=== PATIENT | female | born 1940 | race Caucasian/White ===

== ENCOUNTER 2016-08-18 16:21 | Inpatient (IN) ==
[2016-08-18] MEDS ORDERED: NS 500 ML IV ONE (16:41)
[2016-08-18] MEDS ORDERED: NS 1,000 ML IV ONE (16:41)
[2016-08-18 17:20] LABS: MANUAL DIFF NEEDED? NO
[2016-08-18 17:24] LABS: BASO% 0.1 % (0.0-0.8); EOS# 0.07 X1000 (0.0-0.7); HEMOGLOBIN 9.2 g/dL (12.0-16.0); IMM GRAN# 0.04 X1000 (0.0-0.04); IMM GRAN% 0.6 % (0.0-0.5); LYMPH# 1.36 X1000 (1.2-3.4); LYMPH% 19.4 % (20.5-51.1); MCHC 32.9 g/dL (33-37); MCV 91.2 FL (81-99); MONO# 0.59 X1000 (0.11-0.59); MONO% 8.4 % (1.7-9.3); MPV 12.1 FL (7.4-10.4); NEUT% 70.5 % (42.2-75.2); PLT 133 X1000 (130-400); RBC 3.07 XMIL (4.2-5.4)
[2016-08-18 17:46] LABS: ALBUMIN 2.9 g/dL (3.5-5.0); CALCIUM 8.4 mg/dL (8.8-10.2); MAGNESIUM 2.3 mg/dL (1.5-2.7); POTASSIUM 4.5 mmol/L (3.5-5.1); TOTAL BILIRUBIN 0.52 mg/dL (0.20-1.00); TOTAL PROTEIN 5.6 g/dL (6.3-8.3)
[2016-08-18 18:04] LABS: FREE T4 1.22 ng/dL (0.93-1.70)
--- NOTE | 2016-08-18 18:04 | PROVIDER DOCUMENTATION ---
This chart was entered by Mesha Sosa Scribe, acting as scribe for Wyatt Sherman MD. HPI-General Adult <Mena Gaytan - Last Filed: 08/19/16 18:38> - General Source: patient - History of Present Illness -Gen Adult Nature of Presenting Problems: 76 yo F presents to the ER with complaint of hematuria, "white mucous" in urine , and increased confusion. Pt left rehab yesterday, family member reports rehab facility wouldn't send her to the ER for further evaluation so they signed her out AMA. Family reports the rehab facility performed lab work a couple days ago and said that she was "critically anemic". Onset/Duration: reports: 2 days ago Associated Symptoms: reports: genitourinary problems, weakness. denies: fever/ chills <Wyatt Sherman. - Last Filed: 08/23/16 20:25> - General Chief Complaint: UTI Symptoms Stated Complaint: UTI SX/ ANEMIA Time Seen by Provider: 08/18/16 16:29 Allergies/Adverse Reactions: Patient Allergies Allergy/AdvReac Type Severity Reaction Status Date / Time azithromycin Allergy Unknown Verified 08/18/16 17:23 clindamycin Allergy Unknown Verified 08/18/16 17:23 codeine Allergy Unknown Verified 08/18/16 17:23 Home Medications: Home Medication List Medication Instructions Recorded Confirmed Last Taken Type Amlodipine [Norvasc] 10 mg PO DAILY 08/18/16 08/18/16 08/18/16 History Atorvastatin Calcium [Lipitor] 40 mg PO DAILY 08/18/16 08/18/16 08/18/16 History Carvedilol [Coreg] 12.5 mg PO DAILY 08/18/16 08/18/16 08/18/16 History Famotidine [Pepcid] 20 mg PO DAILY 08/18/16 08/18/16 08/18/16 History Hydralazine [Apresoline] 100 mg PO DAILY 08/18/16 08/18/16 08/18/16 History Potassium Chloride 10 meq PO DAILY 08/18/16 08/18/16 08/18/16 History Promethazine [Phenergan] 25 mg AR Q6H PRN PRN 08/18/16 08/18/16 Unknown History Ranolazine [Ranexa] 1,000 mg PO DAILY 08/18/16 08/18/16 08/18/16 History Spironolactone [Aldactone] 25 mg PO DAILY 08/18/16 08/18/16 08/18/16 History Tamsulosin [Flomax] 0.4 mg PO DAILY 08/18/16 08/18/16 08/18/16 History Vitamin E 1,000 unit PO DAILY 08/18/16 08/18/16 08/18/16 History Review of Systems - Adult - REVIEW OF SYSTEMS - ADULT ROS:: limited per condition Constitutional: denies: chills, fever Eyes: reports: no symptoms reported Ears, Nose, Mouth & Throat: reports: no symptoms reported Cardiovascular: denies: chest pain, palpitations Respiratory: denies: cough, shortness of breath Gastrointestinal: denies: diarrhea, nausea, vomiting Genitourinary: reports: see HPI, discharge, hematuria Musculoskeletal: denies: joint pain, joint swelling Integumentary: reports: no symptoms reported Neurological: reports: no symptoms reported Psychiatric: reports: no symptoms reported Endocrine: reports: no symptoms reported Hematologic/Lymphatic: reports: no symptoms reported Allergic/Immunologic: reports: no symptoms reported All Other Systems: Reviewed and Negative <Wyatt Sherman - Last Filed: 08/23/16 20:25> Past History - Adult - PAST MEDICAL HISTORY-ADULT Review of Records: reports: Old Records Reviewed, Social history reviewed & non- contributory. <Mena Gaytan - Last Filed: 08/19/16 18:38> - PAST MEDICAL HISTORY-ADULT Review of Records: reports: Nursing Assessment Review, Medications Reviewed Cardiovascular: reports: CHF, NM Genitourinary: reports: kidney disease - PRIOR SURGERIES/PROCEDURES Surgical/Procedure History: reports: CABG - IMMUNIZATION STATUS Childhood Immunizations: See Nurse Assessment Flu Vaccine: See Nurse Assessment <Wyatt Sherman - Last Filed: 08/23/16 20:25> Physical Exam-General - PHYSICAL EXAM-ADULT Initial Vital Signs Reviewed: Yes - CONSTITUTIONAL General Appearance: alert, no apparent distress - EYES Eyes: PERRL/EOMI, pink conjunctivae - HEAD, EARS, NOSE, MOUTH & THROAT HENMT: normocephalic/atraumatic, normal ENT inspection - NECK Neck: supple, normal inspection - RESPIRATORY Respiratory: no respiratory distress, no accessory muscle use - CARDIOVASCULAR Cardiovascular: normal peripheral pulses, regular rate, rhythm, systolic murmur (/6) - GASTROINTESTINAL (ABDOMEN) Abdominal Exam: normal bowel sounds, non tender, soft - MUSCULOSKELETAL Back Exam: no CVA tenderness, no vertebral tenderness Extremity: normal range of motion, non-tender, normal gait, normal inspection - SKIN Integumentary: normal color, warm/dry - NEUROLOGIC Neurologic: grossly normal, no motor/sensory deficits - PSYCHIATRIC Psych/Mental Status: disoriented x 3, tearful <Wyatt Sherman - Last Filed: 08/23/16 20:25> Progress - PLAN OF CARE/RESULTS Progress/Plan/Lab Results: Vital Signs - 8 hr 08/18/16 16:25 08/18/16 18:25 Temperature 98.1 F Pulse Rate 81 77 Respiratory Rate 20 12 Blood Pressure 108/49 101/42 O2 Sat by Pulse Oximetry 100 99 Laboratory Results - last 24 hr 08/18/16 08/18/16 08/18/16 17:08 17:08 17:08 WBC 7.01 RBC 3.07 L Hgb 9.2 L Hct 28.0 L MCV 91.2 MCH 30.0 MCHC 32.9 L RDW Std Deviation 15.3 H Plt Count 133 MPV 12.1 H Immature Gran % (Auto) 0.6 H Neut % (Auto) 70.5 Lymph % (Auto) 19.4 L [place] % (Auto) 8.4 Eos % (Auto) 1.0 Baso % (Auto) 0.1 Immature Gran # (Auto) 0.04 Neut # (Auto) 4.94 Lymph # (Auto) 1.36 [place] # (Auto) 0.59 Eos # (Auto) 0.07 Baso # (Auto) 0.01 Sodium Potassium Chloride Carbon Dioxide Anion Gap BUN Creatinine Estimated GFR/1.73 m2 BUN/Creatinine Ratio Glucose Calculated Osmolality Calcium Magnesium Total Bilirubin AST ALT Alkaline Phosphatase Total Protein Albumin Globulin Albumin/Globulin Ratio Vitamin B12 Vitamin D 25-Hydroxy 31.1 TSH Free T4 Urine Source Urine Color Urine Turbidity Urine pH Ur Specific [place] Urine Protein Ur Glucose (Stick) Ur Ketones (Stick) Urine Blood Urine Nitrite Urine Bilirubin Urobilinogen Dipstick Urine Leukocytes Urine WBC (Auto) Urine RBC (Auto) U Epithel Cells (Auto) Urine Bacteria (Auto) Urine Opiates Screen Ur Oxycodone Screen Ur Methadone, Qual Ur Barbiturates Screen Ur Phencyclidine Scrn Ur Amphetamines Screen U Benzodiazepines Scrn Urine Cocaine Screen U Cannabinoids Screen Plasma/Serum Ethyl Alc Blood Type Antibody Screen 08/18/16 08/18/16 08/18/16 17:08 17:08 17:08 WBC RBC Hgb Hct MCV MCH MCHC RDW Std Deviation Plt Count MPV Immature Gran % (Auto) Neut % (Auto) Lymph % (Auto) [place] % (Auto) Eos % (Auto) Baso % (Auto) Immature Gran # (Auto) Neut # (Auto) Lymph # (Auto) [place] # (Auto) Eos # (Auto) Baso # (Auto) Sodium 138 Potassium 4.5 Chloride 102 Carbon Dioxide 26 Anion Gap 10 BUN 45 H Creatinine 1.7 H Estimated GFR/1.73 m2 29 BUN/Creatinine Ratio 26 Glucose 374 H Calculated Osmolality 303 Calcium 8.4 L Magnesium 2.3 Total Bilirubin 0.52 AST 21 ALT 39 H Alkaline Phosphatase 153 H Total Protein 5.6 L Albumin 2.9 L Globulin 2.7 Albumin/Globulin Ratio 1.1 Vitamin B12 1123 H Vitamin D 25-Hydroxy TSH 1.83 Free T4 1.22 Urine Source Urine Color Urine Turbidity Urine pH Ur Specific [place] Urine Protein Ur Glucose (Stick) Ur Ketones (Stick) Urine Blood Urine Nitrite Urine Bilirubin Urobilinogen Dipstick Urine Leukocytes Urine WBC (Auto) Urine RBC (Auto) U Epithel Cells (Auto) Urine Bacteria (Auto) Urine Opiates Screen Ur Oxycodone Screen Ur Methadone, Qual Ur Barbiturates Screen Ur Phencyclidine Scrn Ur Amphetamines Screen U Benzodiazepines Scrn Urine Cocaine Screen U Cannabinoids Screen Plasma/Serum Ethyl Alc Blood Type A POSITIVE Antibody Screen NEGATIVE 08/18/16 08/18/16 18:15 18:15 WBC RBC Hgb Hct MCV MCH MCHC RDW Std Deviation Plt Count MPV Immature Gran % (Auto) Neut % (Auto) Lymph % (Auto) [place] % (Auto) Eos % (Auto) Baso % (Auto) Immature Gran # (Auto) Neut # (Auto) Lymph # (Auto) [place] # (Auto) Eos # (Auto) Baso # (Auto) Sodium Potassium Chloride Carbon Dioxide Anion Gap BUN Creatinine Estimated GFR/1.73 m2 BUN/Creatinine Ratio Glucose Calculated Osmolality Calcium Magnesium Total Bilirubin AST ALT Alkaline Phosphatase Total Protein Albumin Globulin Albumin/Globulin Ratio Vitamin B12 Vitamin D 25-Hydroxy TSH Free T4 Urine Source CATH Urine Color YELLOW Urine Turbidity HAZY Urine pH 7.0 Ur Specific [place] 1.007 Urine Protein NEGATIVE Ur Glucose (Stick) 500 A Ur Ketones (Stick) NEGATIVE Urine Blood NEGATIVE Urine Nitrite POSITIVE A Urine Bilirubin NEGATIVE Urobilinogen Dipstick NORMAL Urine Leukocytes LARGE A Urine WBC (Auto) TNTC A Urine RBC (Auto) <10 U Epithel Cells (Auto) <10 Urine Bacteria (Auto) 4+ Urine Opiates Screen NONE DETECTED Ur Oxycodone Screen NONE DETECTED Ur Methadone, Qual NONE DETECTED Ur Barbiturates Screen NONE DETECTED Ur Phencyclidine Scrn NONE DETECTED Ur Amphetamines Screen NONE DETECTED U Benzodiazepines Scrn NONE DETECTED Urine Cocaine Screen NONE DETECTED U Cannabinoids Screen NONE DETECTED Plasma/Serum Ethyl Alc Blood Type Antibody Screen Orders Category Date Time Status ALCOHOL BLOOD Stat Lab 08/18/16 17:08 Completed CBC WITH ELECTRONIC DIFF [HEME] Stat Lab 08/18/16 17:08 Completed COMPREHENSIVE METABOLIC PANEL [CHEM] Stat Lab 08/18/16 17:08 Completed FREE T4 Stat Lab 08/18/16 17:08 Completed MAGNESIUM [CHEM] Stat Lab 08/18/16 17:08 Completed TSH Stat Lab 08/18/16 17:08 Completed TYPE & SCREEN [BBK] Stat Lab 08/18/16 17:08 Completed URINALYSIS W/POSS RFLX CULT-1 [URINALYSIS] Stat Lab 08/18/16 18:15 Completed URINE CULTURE [RM] Routine Lab 08/18/16 18:41 Received URINE DRUG SCREEN Stat Lab 08/18/16 18:15 Completed VITAMIN B12 Stat Lab 08/18/16 17:08 Completed VITAMIN D 25 HYDROXY Stat Lab 08/18/16 17:08 Completed 0.9% Sodium Chloride Inj [Ns] 1,000 ml Med 08/18/16 16:41 Active IV 100 mls/hr 0.9% Sodium Chloride Inj [Ns] 500 ml Med 08/18/16 16:41 Discontinued IV 999 mls/hr Result Diagrams: 08/19/16 05:50 08/19/16 05:50 - REASSESSMENT Reassessment #1 Time Reassessed: 20:00 (PER HOSPITALIST MULTIFOCAL BUTTON INSPECTOR, PT AND FAMILY REQUEST TO BE SENT TO FOR CARE OF DR. KING-HOSE INSPECTOR.) Reassessment #2 Time Reassessed: 20:25 (CONTACTED TRANSFER CENTER FOR POSSIBLE ADMIT, AWAITING RETURN CALL.) Status: other - CONSULTS/PCP/HOSPITALIST Notification #1 *Consult/PCP/Hospitalist*: DR. GRAY Time Discussed: 19:37 Reason/Comments: DISCUSSED ADMISSION FOR UTI, WEAKNESS, CHRONIC RENAL FAILURE. Consult Disposition: Will see in ED #2 Consult: DR. SAMUELS- NEPHROLOGY Time Discussed: 21:10 (DISCUSSED PT TRANSFER. NO NEED FOR TRANSFER R/T LABS BASELINE FOR PT, PT STABLE. CAN KEEP AND ADMIT HERE.) Consult Disposition: other #3 Consult: DR. GRAY Time Discussed: 21:30 (RN SPOKE WITH PT FAMILY FOR CONSENT TO KEEP PT HERE.) Consult Disposition: Will see in ED, Admit <Mena Gaytan - Last Filed: 08/19/16 18:38> - PLAN OF CARE/RESULTS Progress/Plan/Lab Results: Vital Signs - 8 hr 08/18/16 16:25 Temperature 98.1 F Pulse Rate 81 Respiratory Rate 20 Blood Pressure 108/49 O2 Sat by Pulse Oximetry 100 Result Diagrams: 08/22/16 06:07 08/23/16 06:30 - CHANGE OF SHIFT REPORT (ED Provider) Report Given and Care Transferred to:: Mena Gaytan Time of Transfer: 18:04 Items Pending: Labs, XRAY Results <Wyatt Sherman - Last Filed: 08/23/16 20:25> Departure - Departure Date of Disposition Decision: 08/18/16 Time of Disposition Decision: 20:41 Certified Medical Emergency: Emergent - Critical Care Note This patient required my direct & personal management of CC.: No <Mena Gaytan - Last Filed: 08/19/16 18:38> - Departure Date of Disposition Decision: 08/18/16 Time of Disposition Decision: 20:40 Certified Medical Emergency: Emergent - Critical Care Note This patient required my direct & personal management of CC.: No <Wyatt Sherman - Last Filed: 08/23/16 20:25> - Departure DIAGNOSIS: Urinary tract infection Qualifiers: Urinary tract infection type: site unspecified Hematuria presence: without hematuria Qualified Code(s): N39.0 - Urinary tract infection, site not specified Renal failure, chronic Qualifiers: Chronic kidney disease stage: unspecified stage Qualified Code(s): N18.9 - Chronic kidney disease, unspecified Disposition: ADMITTED INPATIENT 09 Condition: Good Attestation - Physician/ BRIE Attestation Patient care was provided by Advanced Practice Provider:: Yes Advanced Practice Provider:: Mena Gaytan Advanced Practice Provider documentation review:: The Mid-level provider documentation, treatment plan and medical decision making was reviewed by the physician who agrees with all treatment and medical decision making by the MLP. <Mena Gaytan - Last Filed: 08/19/16 18:38> This chart was documented by the indicated scribe, (Mesha Sosa Scribe) and accurately reflects the services I performed and decisions made by me, Wyatt Sherman MD, as attested by the provider's signature.
[2016-08-18 18:24] LABS: URINE MICRO REVIEW NEEDED? NO; URINE SOURCE CATH
[2016-08-18 18:32] LABS: BILIRUBIN URINE NEGATIVE (NEGATIVE); BLOOD URINE NEGATIVE (NEGATIVE); COLOR YELLOW; GLUCOSE URINE 500 mg/dL (NEGATIVE); LEUKOCYTES URINE LARGE (NEGATIVE); NITRITE URINE POSITIVE (NEGATIVE); PROTEIN URINE NEGATIVE (NEGATIVE); SP GRAVITY URINE 1.007; TURBIDITY URINE HAZY (CLEAR); UROBILINOGEN URINE NORMAL (NORMAL)
[2016-08-18 18:34] LABS: UR EPITHELIAL CELLS <10 /HPF (<10); URINE BACTERIA 4+ /HPF; URINE CULTURE NEEDED? YES; URINE RBC <10 /HPF (<10); URINE WBC TNTC /HPF (<10)
[2016-08-18 18:40] LABS: UR AMPHETAMINES QUAL NONE DETECTED (NONE DETECT); UR BARBITUATES QUAL NONE DETECTED (NONE DETECT); UR BENZODIAZEPIN QUAL NONE DETECTED (NONE DETECT); UR CANNABINOIDS QUAL NONE DETECTED (NONE DETECT); UR COCAINE QUAL NONE DETECTED (NONE DETECT); UR METHADONE QUAL NONE DETECTED (NONE DETECT); UR OPIATES QUAL NONE DETECTED (NONE DETECT); UR OXYCODONE QUAL NONE DETECTED (NONE DETECT); UR PCP QUAL NONE DETECTED (NONE DETECT)
[2016-08-18] MEDS ORDERED: ROCEPHIN 1 GM/NS 1 GM/50 ML IVPB IV ONE (19:36)
--- NOTE | 2016-08-18 23:17 | HISTORY AND PHYSICAL ---
PRIMARY CARE PROVIDER: None. SLACK LINE YARDER: Dr. Amador in [place]. COLLET MAKER: Dr. Fernandes in [place]. CHIEF COMPLAINT: UTI symptoms. HISTORY OF PRESENT ILLNESS: This is a 76-year-old female who comes into the ER with her daughter. The family was complaining that she was at a rehab facility. I [facility] [place]. She had been in and out of rehab facilities since her open heart surgery a few years ago. The family checked her out a rehab a day early against medical advice after the rehab had said that she had critical anemia. They had asked her to be sent to the hospital and the rehab apparently declined. At any rate, the family lives in [place] so they brought her to our emergency room related to urinary symptoms such as frequency, dysuria. She also had a complaint of nausea with 1 episode of vomiting. She had been treated for a urinary tract infection I believe at rehab however she was not currently on antibiotics possibly related to her leaving against medical advice and not receiving any written prescriptions. 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 Laboratory data was obtained in the emergency room. The patient was found to be anemic however it is hard to differentiate between anemia of chronic disease in a renal patient and acute anemia and the patient's BUN and creatinine were 45 and 1.7 respectively as well as a glucose of 374. The patient will be admitted to the medical floor for further evaluation and treatment. PAST MEDICAL HISTORY: See HPI. PREVIOUS SURGICAL HISTORY: 1. Pacemaker implantation. 2. Tunneled catheter placement and then removal for dialysis last March. 3. CABG 2014 . 4. C-sections x2. 5. Cervical fusion. 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 Denies tobacco, alcohol or illicit drug use or abuse. She is currently and has been for 53 years. She has 2 children. Her lives in a custodial. She lives at home alone with family in [place]. FAMILY HISTORY: Mother at age 80 secondary to lupus. Father had myocardial infarctions and coronary artery disease also in his 80s, 3 siblings 1 living with diabetes mellitus, hypertension and coronary artery disease and 2 additional brothers who are related to accidental . ALLERGIES: Azithromycin, clindamycin and codeine causing unknown reactions. HOME MEDICATIONS: 1. Vitamin E 1000 units p.o. daily. 2. Flomax 0.4 mg p.o. daily. 3. Aldactone 25 mg p.o. daily. 4. Ranexa 1000 mg p.o. daily. 5. Phenergan 25 mg p.o. q.6 p.r.n. 6. Potassium chloride 10 mEq p.o. daily. 7. Lasix 40 mg p.o. daily. 8. Pepcid 20 mg p.o. daily. 9. Coreg 12.5 mg p.o. daily. 10. Lipitor 40 mg p.o. daily. 11. Apresoline 100 mg p.o. daily. 12. Norvasc 10 mg p.o. daily. REVIEW OF SYSTEMS: Fourteen point review of systems conducted with patient. Pertinent positives listed above in the HPI. All other systems reviewed and found to be negative. PHYSICAL EXAMINATION: VITAL SIGNS: Temperature 98.1 degrees, pulse 77, respirations 18, blood pressure 106/57, oxygen saturation 100% on room air. GENERAL: Pleasant 76-year-old female lying in the ER stretcher. Family at the bedside, appears to be very supportive. Patient is alert and oriented x3. Answers all questions appropriately. HEENT: Head is atraumatic, normocephalic. Pupils equal, round, reactive to light. Extraocular eye movement intact. Sclerae is anicteric. Conjunctivae is pale. Oral mucosa is dry. NECK: Supple. No JVD. No thyromegaly. Trachea is midline. No cervical lymphadenopathy. CARDIAC: Regular rhythm, S1-S2 appreciated, 2/6 systolic ejection murmur noted. No gallops. No rubs. LUNGS: Mild expiratory wheezing noted. No rhonchi, no rales. Symmetrical rise and fall respirations. ABDOMEN: Soft, nondistended, nontender. Bowel sounds present all 4 quadrants. Normoactive. No pulsatile mass. No organomegaly. EXTREMITIES: No clubbing, cyanosis, or edema, 2+ pedal pulses bilaterally. GENITOURINARY: Patient voids, otherwise deferred. NEUROLOGICAL: Alert and oriented x3. Cranial nerves 2-12 appear to be grossly intact. SKIN: Warm, dry and intact, mildly pale, poor skin turgor noted. LABORATORY DATA: WBC 7.01, hemoglobin 9.2, hematocrit 28, platelet count is 133 ,000. Sodium 138, potassium 4.5, chloride 102, carbon dioxide 26, BUN 45, creatinine 1.7, glucose 374. Urine nitrate positive, leukocyte esterase positive, too numerous to count WBCs, 4+ bacteria. Toxicology and alcohol screen negative. ASSESSMENT AND PLAN: 1. Urinary tract infection with previous stent at rehab. Will cover with Maxipime 1 g now for increased risks of Pseudomonas. Will ask pharmacy to dose related to her renal function. The patient did receive a gram of Rocephin in the emergency room. Will await sensitivities from the urine culture, will also draw blood cultures. 2. Chronic kidney disease with an unknown baseline. The patient clinically appears to be volume depleted. It is unknown whether the patient has some amount of acute kidney disease on top of her chronic renal disease. Right now chronic kidney disease would be stage 4. The patient was given 1 L of normal saline in the emergency room. Per the family and the patient Dr. Fernandes her power generating plant operator in [place] at one point had given her very poor prognosis related to poor kidney function and decreased cardiac function. Will get medical records from [facility] and will not give additional fluid volume replacement at this time. 3. Fluid volume depletion. See #2. 4. Hypertension. The patient is normotensive at this time. Will hold her antihypertensives at home. Again as noted above we do not have baseline laboratory data on this patient. Her hemoglobin and hematocrit are 9.2 and 28. She was per the family reported as having a critical level of anemia at rehab however there is no way to quantify this at this time. Will recheck laboratory data. 5. Anemia of chronic disease versus acute blood loss anemia. The patient does not have any overt signs of bleeding. There was no noted change in her bowel movements, no blood in her emesis and her urine was negative for hematuria. We will recheck hemoglobin and hematocrit stat as well as recheck CBC in a.m. The patient was typed and screened in the emergency room. We will not transfuse at this time. 6. Congestive heart failure. Aware. Patient does not appear to be on ELIO inhibitor and also has an unknown ejection fraction. Will order medical charting from [facility]. 7. Diabetes mellitus type 2 now insulin dependent. Fingerstick blood sugar q.a.c. and at bedtime with sliding scale insulin. Further recommendations per patient clinical course. Dictated by BRE Ortega for Enmanuel Ortiz MD Seen,examined and discuss case with FARM PRODUCT PURCHASER cc: MD Dr. Dena Dyer
[2016-08-18] MEDS ORDERED: ZOFRAN IV PRN (23:23)
[2016-08-18] MEDS ORDERED: MAXIPIME 1 GM/NS 1 GM/50 ML IVPB IV ONE (23:23)
[2016-08-18] MEDS ORDERED: MISC. PHARMACY COMMUNICATION SCH (23:23)
[2016-08-19 00:06] LABS: HEMATOCRIT 26.6 % (37.0-47.0)
[2016-08-19 06:19] LABS: MANUAL DIFF NEEDED? NO
[2016-08-19] MEDS: HUMALOG SUBQ SCH ×3 (06:20→16:10)
--- NOTE | 2016-08-19 06:22 | Diag Imaging Result Doc PS360 ---
EXAM: CHEST-PORTABLE HISTORY: hx of chf TECHNIQUE: Portable upright AP COMPARISON: None. FINDINGS: The lungs are well expanded. Heart is not enlarged. Sternal wires and surgical clips are present as well as a left-sided pacemaker. Mild increased interstitial markings. No consolidation. No pleural effusions identified. IMPRESSION: Mild increased interstitial markings may represent fibrosis or minimal pulmonary edema. Electronically signed by Nirav Gonzalez 08/19/2016 6:20 AM
[2016-08-19 06:38] LABS: CALCIUM 8.3 mg/dL (8.8-10.2); MAGNESIUM 2.1 mg/dL (1.5-2.7); POTASSIUM 4.3 mmol/L (3.5-5.1)
[2016-08-19 06:42] LABS: BASO% 0.4 % (0.0-0.8); HEMATOCRIT 25.6 % (37.0-47.0); HEMOGLOBIN 8.4 g/dL (12.0-16.0); IMM GRAN# 0.04 X1000 (0.0-0.04); IMM GRAN% 0.7 % (0.0-0.5); LYMPH# 1.44 X1000 (1.2-3.4); LYMPH% 26.5 % (20.5-51.1); MCHC 32.8 g/dL (33-37); MCV 91.4 FL (81-99); MONO# 0.68 X1000 (0.11-0.59); MONO% 12.5 % (1.7-9.3); MPV 12.2 FL (7.4-10.4); NEUT% 59.9 % (42.2-75.2); PLT 132 X1000 (130-400)
[2016-08-19] MEDS: PEPCID PO SCH (09:49)
[2016-08-19] MEDS: COREG PO SCH (09:49)
[2016-08-19] MEDS: RANEXA PO SCH (09:49)
[2016-08-19] MEDS: KLOR-CON PO SCH (09:49)
[2016-08-19] MEDS: LIPITOR PO SCH (09:49)
[2016-08-19] MEDS: NS 1,000 ML IV SCH (15:10)
--- NOTE | 2016-08-19 15:51 | PROGRESS NOTE ---
DATE: 08/19/2016 SUBJECTIVE: Patient reports feeling fine. Denies any fever, chills. Reports some dark urine. OBJECTIVE: Vital Signs: Temperature 97.6 degrees, heart rate 74, respiratory rate 20, blood pressure 127/40, O2 saturation 100% on room air. General Examination: This is a 76-year-old female lying in bed in no acute distress. HEENT: Head is normocephalic, atraumatic. Anicteric sclerae and pale conjunctivae. Mucous membranes moist. Neck: Supple. No JVD noted. No carotid bruits. No lymphadenopathy. No thyromegaly. Cardiovascular: S1, S2 heard. No murmurs, gallops, or rubs. Regular rate and rhythm. Respiratory: Clear bilaterally to auscultation. No work of breathing or using accessory muscles. Abdomen: Soft , nontender to palpation. Bowel sounds present. No organomegaly. Extremities: No clubbing, cyanosis, or edema. Peripheral pulses present in both legs. Neurological: Patient is hard of hearing. Moves 4 extremities. LABORATORY DATA: White cell count 5.53, hemoglobin 8.4, hematocrit 25.6, platelets 132,000. BMP remarkable for creatinine 1.4 and glucose 251. ASSESSMENT/PLAN: 1. Infectious encephalopathy. 2. Urinary tract infection. 3. Chronic kidney disease. 4. Hypertension. 5. Anemia chronic disease. 6. Diabetes mellitus type 2. PLAN: 1. Patient was admitted to the hospital because she was becoming somewhat restless and she was sometimes a little bit lethargic and having some visual hallucinations and the family noted that the urine was also dark so patient actually was from rehab facility and of concern for possible infection. Patient was transferred to this hospital. By now the urine culture is positive, they are growing gram negative rods bacteria. Will continue with cefepime by now then for chronic kidney disease the renal function is recovering nicely so will continue with IV fluids. 2. For hypertension will continue with the same home medications. Further recommendations to follow according to clinical situation of the patient. cc: MD MIKE Le
[2016-08-19] MEDS ORDERED: XANAX PO ONE (21:01)
[2016-08-19] MEDS ORDERED: MAXIPIME 1 GM/NS 1 GM/50 ML IVPB IV SCH (22:00)
[2016-08-20] MEDS: HUMALOG SUBQ SCH ×5 (01:31→22:28)
[2016-08-20 06:22] LABS: MANUAL DIFF NEEDED? NO
[2016-08-20 06:27] LABS: BASO% 0.2 % (0.0-0.8); EOS# 0.16 X1000 (0.0-0.7); EOS% 2.7 % (0.0-10.0); HEMATOCRIT 25.8 % (37.0-47.0); HEMOGLOBIN 8.4 g/dL (12.0-16.0); IMM GRAN# 0.08 X1000 (0.0-0.04); IMM GRAN% 1.4 % (0.0-0.5); LYMPH# 2.07 X1000 (1.2-3.4); LYMPH% 35.3 % (20.5-51.1); MCH 30.1 PG (27-31); MCHC 32.6 g/dL (33-37); MCV 92.5 FL (81-99); MONO# 0.74 X1000 (0.11-0.59); MONO% 12.6 % (1.7-9.3); MPV 11.3 FL (7.4-10.4); NEUT% 47.8 % (42.2-75.2); PLT 140 X1000 (130-400); RBC 2.79 XMIL (4.2-5.4)
[2016-08-20 06:45] LABS: CALCIUM 8.2 mg/dL (8.8-10.2)
[2016-08-20] MEDS: NS 1,000 ML IV SCH ×2 (07:03→17:05)
[2016-08-20] MEDS: PEPCID PO SCH (10:25)
[2016-08-20] MEDS: RANEXA PO SCH (10:25)
[2016-08-20] MEDS: LIPITOR PO SCH (10:26)
[2016-08-20] MEDS: KLOR-CON PO SCH (10:26)
[2016-08-20] MEDS: COREG PO SCH (10:32)
[2016-08-20] MEDS ORDERED: ZOSYN 3.375 GM/NS 3.375 GM/50 ML IVPB IV SCH (11:00)
--- NOTE | 2016-08-20 14:57 | PROGRESS NOTE ---
DATE: 08/20/2016 SUBJECTIVE: Patient reports feeling fine. More oriented today. OBJECTIVE: Vital Signs: Temperature 97.9 degrees, heart rate 70, respiratory rate 16, blood pressure 118/53, O2 saturation 100% on room air. General Examination: This is a chronically ill- looking and frail, 76-year-old female lying in bed, in no acute distress. HEENT: Head is normocephalic, atraumatic. Anicteric sclerae. Pale conjunctivae. Mucous membranes moist. Neck: Supple. No JVD noted. No carotid bruits. No lymphadenopathy. No thyromegaly. Cardiovascular: S1, S2 heard. No murmurs, gallops, or rubs. Regular rate and rhythm. Respiratory: Clear bilaterally to auscultation. No work of breathing or using accessory muscles. Abdomen: Soft. Nontender to palpation. Bowel sounds present. No organomegaly. Extremities: No clubbing, cyanosis, or edema. Peripheral pulses present in both legs. Neurological: Patient is hard of hearing. Moves 4 extremities. LABORATORY DATA: Hemoglobin 8.4, hematocrit 25.8. Creatinine 1.3. ASSESSMENT: 1. Infectious encephalopathy. 2. Urinary tract infection. 3. Chronic kidney disease. 4. Hypertension. 5. Anemia of chronic disease. 6. Diabetes mellitus type 2. PLAN: The patient was admitted to the hospital for encephalopathy and UTI that we got the results of the urine culture. The bacteria is presumed in this infection is Proteus mirabilis. Patient was receiving cefepime but apparently this bacteria is aggressive to cefepime. It is sensitive to Zosyn so we are going to start this medication and stop cefepime because it is resistant to the medication. Will continue with that medication. For chronic kidney disease, the creatinine is now as yesterday 1.5 and I guess this is his baseline considering this acute kidney injury with dialysis that the patient had in the past. For the rest of the medical conditions, patient is doing fine. cc: Gabriel Wang MD
[2016-08-20] MEDS: ZOSYN 2.25 GM/NS 2.25 GM/50 ML IVPB IV SCH ×2 (18:01→22:29)
--- NOTE | 2016-08-20 19:44 | CONSULTATION ---
DATE OF CONSULTATION: 08/20/2016 INCOMPLETE REPORT--DICTATION STARTS HERE. PHYSICAL EXAMINATION: Vital Signs: Temperature is 97.9 degrees, pulse 78, respirations 16, blood pressure 96/31. Patient weighs 93 pounds. General: This is a somewhat ill-appearing, elderly female. She is in no acute distress. Cardiovascular: Heart rate was regular. Peripheral pulses were diminished. There was no leg edema. Lung: Clear to auscultation. Abdomen: Soft and nontender. Extremities: Legs, no edema. Neurologic: Patient is awake. She can move her extremities. There is no tremor. Her sensation is intact to touch. Her memory as regarding her medical history is reduced. Thorax: Patient has a pacemaker in place. The site is not erythematous or more swollen than you would expect just because of having the pacemaker present. Thank you for the consult. cc: Erick Sorto MD
--- NOTE | 2016-08-20 19:44 | CONSULTATION ---
DATE OF CONSULTATION: 08/20/2016 CONCLUSION: I have been asked to see the patient because she has recurrent urinary tract infections. Unfortunately I was unable to get a good history from the patient. No family member was present. Most of the past medical history I obtained from reviewing the computer information. The patient was admitted to the hospital because she had generalized weakness and she also complained of dysuria. She also had nausea and 1 episode of vomiting. Lab studies done thus far show a CBC with a white count of 5870, hemoglobin 8.4 and platelet count 140,000. Creatinine was 1.3. GFR was 40. The patient's culture grew out a multiply drug resistant Proteus. PRESENT ILLNESS: The patient's chest x-ray showed increased mild interstitial markings. RECOMMENDATIONS: I agree with placing the patient on Zosyn. I have decreased her dose because patient weighs only 93 pounds. Also I have ordered a renal ultrasound with instructions to also measure postvoid residual urine. As regarding the patient's recurrent urinary tract infections, if the ultrasound shows that she has a large postvoid residual urine she may be a candidate for intermittent urinary catheterization. Also she may be a candidate for vaginal topical estrogen to help her prevent getting recurrent urinary tract infections. Lastly if the patient continually had urinary tract infections with the same organism she may be a candidate for long-term suppressive antibiotic therapy. At this time I have only been able to find 1 urine culture in the computer which was the Proteus that was multiply drug resistant. DISCUSSION: The patient was brought in because of weakness and dysuria as mentioned above. Laboratory studies are as mentioned above also. I have ordered a renal ultrasound and also requested a measurement of a postvoid residual urine. MEDICAL DISEASES: Include she is very elderly, she has a history of anemia. She has had myocardial infarction, congestive heart failure, diabetes mellitus, hypertension, chronic kidney disease. Hyperlipidemia and gastroesophageal reflux disease. SURGICAL HISTORY: Positive for pacemaker implantation, tunneled catheter for hemodialysis which subsequently has been removed, coronary artery bypass grafting, x2 and cervical fusion. INFECTIOUS DISEASE HISTORY: Positive for UTI. FAMILY HISTORY: Positive for systemic lupus, myocardial infarction, diabetes mellitus, hypertension, coronary artery disease. SOCIAL HISTORY: Patient retired from working at [employer]. She denied smoking cigarettes, drinking alcoholic beverages or use of illicit drugs. She has been for 53 years. She has 2 children. Her lives in a usp. She lived at home before by herself. ALLERGIES: The patient has allergies to azithromycin, clindamycin and codeine. HOME MEDICATIONS: Include vitamin E, Flomax, Aldactone, Ranexa, Phenergan, potassium, Lasix, Pepcid, Coreg, Lipitor, Apresoline and Norvasc. PHYSICAL EXAMINATION: Vital Signs: Temperature is 97.9 degrees, pulse 78, respirations 16, blood pressure 96/31. Patient weighs 93 pounds. General: This is a chronically ill-appearing, elderly female. She is in no acute distress. Head, eyes, ears, nose, and throat: She is edentulous. No drainage noted from the nose or ears. She had decreased hearing. Neck: No meningismus. Thorax: No increased AP diameter of the chest. Patient has a pacemaker present on the left side. There is no swelling other than the pacemaker itself. There is no erythema. Lungs: Clear to auscultation. Cardiovascular: Heart rate was regular. Peripheral pulses were diminished. Abdomen: Soft and nontender. Neurologic: Patient is awake. She can move her extremities but she is weak. There is no tremor. Her sensation is intact to touch. She had poor memory as regarding her medical history. Thank you for the consult. cc: Erick Sorto MD
[2016-08-21] MEDS: ZOSYN 2.25 GM/NS 2.25 GM/50 ML IVPB IV SCH ×4 (03:41→21:32)
[2016-08-21] MEDS: NS 1,000 ML IV SCH ×2 (06:04→21:33)
--- NOTE | 2016-08-21 06:19 | EKG Report ---
Test Performed on : 08/19/2016 06:33:15 AM Test Reason : chest pain Blood Pressure : / mmHG Vent. Rate : 071 BPM Atrial Rate : 071 BPM P-R Int : 148 ms QRS Dur : 088 ms QT Int : 420 ms P-R-T Axes : 050 -14 125 degrees QTc Int : 456 ms Normal sinus rhythm. Left ventricular hypertrophy with repolarization abnormality Septal infarct , age undetermined Abnormal ECG No previous ECGs available Confirmed by Izaiah Guido MD ([id number]) on 08/21/2016 10:17:18 AM
[2016-08-21] MEDS: HUMALOG SUBQ SCH ×4 (06:49→21:35)
--- NOTE | 2016-08-21 07:53 | Diag Imaging Result Doc PS360 ---
EXAM: US RENAL 2 (RETROPER) COMPLETE HISTORY: recurrent UTI TECHNIQUE: Renal ultrasound, transabdominal COMMENT: Detail is somewhat suboptimal due to the patient's body habitus. The right kidney is 10.9 x 4.9 x 4.9 cm the left is 10.9 x 4.8 x 4.7 cm. There is a small amount of fluid in the posterior subhepatic space on the right (Morison's pouch.) There is a cyst which is apparently separate from the left kidney of between the kidney and the spleen measuring 1.5 x 1.2 x 1.2 cm. There is apparent sediment in the urinary bladder. The prevoid volume was 254 mL and postvoid 180 mL. No evidence of renal mass or hydronephrosis is present. IMPRESSION: 1. Minimal free peritoneal fluid as described. 2. Left upper quadrant cyst. 3. Sediment in the urinary bladder consistent with the patient's history of urinary tract infections. Electronically signed by Reji Cantu 08/21/2016 7:50 AM
[2016-08-21] MEDS: RANEXA PO SCH (08:13)
[2016-08-21] MEDS: KLOR-CON PO SCH (08:13)
[2016-08-21] MEDS: PEPCID PO SCH (08:13)
[2016-08-21] MEDS: COREG PO SCH (08:13)
[2016-08-21] MEDS: LIPITOR PO SCH (08:13)
[2016-08-21 09:40] LABS: MANUAL DIFF NEEDED? NO
[2016-08-21 09:47] LABS: BASO% 0.5 % (0.0-0.8); EOS# 0.21 X1000 (0.0-0.7); EOS% 3.8 % (0.0-10.0); HEMATOCRIT 26.4 % (37.0-47.0); HEMOGLOBIN 8.4 g/dL (12.0-16.0); IMM GRAN# 0.07 X1000 (0.0-0.04); IMM GRAN% 1.3 % (0.0-0.5); LYMPH# 1.84 X1000 (1.2-3.4); LYMPH% 33.2 % (20.5-51.1); MCH 29.9 PG (27-31); MCHC 31.8 g/dL (33-37); MONO# 0.63 X1000 (0.11-0.59); MONO% 11.4 % (1.7-9.3); MPV 11.6 FL (7.4-10.4); NEUT% 49.8 % (42.2-75.2); PLT 181 X1000 (130-400); RBC 2.81 XMIL (4.2-5.4)
--- NOTE | 2016-08-21 16:44 | PROGRESS NOTE ---
DATE: 08/21/2016 SUBJECTIVE: Patient reports feeling fine. No complaints today. OBJECTIVE: Vital Signs: Temperature 97.9 degrees, heart rate 70, respiratory rate 20, blood pressure 124/80, O2 saturation 100% on room air. General Examination: This is a chronically ill- looking, frail, 76-year-old female, lying in bed, in no acute distress. HEENT: Head is normocephalic, atraumatic. Anicteric sclerae and pale conjunctivae. Mucous membranes dry. Neck: Supple. No JVD noted. No carotid bruits. No lymphadenopathy. No thyromegaly. Cardiovascular Examination: S1, S2 heard. No murmurs, gallops, or rubs. Regular rate and rhythm. Respiratory Examination: Clear bilaterally to auscultation. No work of breathing or using accessory muscles. Abdomen: Soft, nontender. Bowel sounds normal. Extremities: No clubbing, cyanosis, or edema. Peripheral pulses present in both legs. Neurological Examination: Alert and oriented times 3. Moves all four extremities. ASSESSMENT AND PLAN: 1. Infectious encephalopathy. 2. Urinary tract infection. 3. Chronic kidney disease. 4. Hypertension. 5. Anemia of chronic disease. 6. Diabetes mellitus, type 2. 7. Coronary artery disease. Patient was admitted for encephalopathy and urinary tract infection. We have isolated from urine culture, proteus mirabilis. Initially, she was receiving cefepime, that was switched to Zosyn. We will continue with that medication. [facility] and she has declined over the last few months after she had acute coronary syndrome and she was seen in [facility]. At this time, we are going to continue with the current management. Because of history of recurrent urinary tract infections, we have consulted Dr. Sorto from Infectious Disease. We will see what he has to say, for how long she will need this medication. Also for physical deconditioning, definitely this patient after she is clinically stable, she wants to be sent to a rehab facility. Regarding chronic kidney disease, apparently the creatinine is around baseline. that she had dialysis for awhile for acute kidney injury, by now her creatinine is much better. For hypertension, we will continue with the same management. For diabetes mellitus type 2, we will continue with the sliding scale insulin. cc: Gabriel Wang MD
--- NOTE | 2016-08-21 19:15 | PROGRESS NOTE ---
DATE: 08/21/2016 PRESENT ILLNESS: The patient has multiply drug resistant Proteus UTI. MEDICATIONS: The patient is on Zosyn. The dose has been modified because of the patient's renal insufficiency. PHYSICAL EXAMINATION: Vital Signs: Temperature is 97.9 degrees, pulse 80, respirations 18, blood pressure 98/50. Generally: This is a chronically ill-appearing elderly female. She is in no acute distress. Lungs: Clear to auscultation. Cardiovascular: Heart rate is regular. Abdomen: And flanks soft and nontender. Thorax: Patient has a left-sided pacemaker. The site is not erythematous or tender. LAB AND X-RAY: The patient's renal ultrasound showed that there was no obstruction and no abscess. The postvoid residual urine was 180. The patient's CBC showed a white count of 5550, hemoglobin 8.4 and platelet count 181,000. Creatinine was 1.3. GFR was 40. ASSESSMENT AND PLAN: The patient has a Proteus urinary tract infection. The plan will be to continue her on Zosyn for a total of 2 weeks. COMORBIDITIES: Include she is elderly and she also is a diabetic and she also has chronic kidney disease. cc: Erick Sorto MD MTDD
[2016-08-22] MEDS: ZOSYN 2.25 GM/NS 2.25 GM/50 ML IVPB IV SCH ×4 (03:30→20:20)
[2016-08-22] MEDS: HUMALOG SUBQ SCH ×4 (06:04→21:36)
[2016-08-22 06:22] LABS: MANUAL DIFF NEEDED? NO
[2016-08-22 06:48] LABS: CALCIUM 8.3 mg/dL (8.8-10.2); POTASSIUM 4.7 mmol/L (3.5-5.1)
[2016-08-22 06:51] LABS: BASO% 0.3 % (0.0-0.8); EOS# 0.16 X1000 (0.0-0.7); EOS% 2.4 % (0.0-10.0); HEMATOCRIT 26.6 % (37.0-47.0); HEMOGLOBIN 8.7 g/dL (12.0-16.0); IMM GRAN% 1.5 % (0.0-0.5); LYMPH# 2.09 X1000 (1.2-3.4); LYMPH% 31.5 % (20.5-51.1); MCH 30.4 PG (27-31); MCHC 32.7 g/dL (33-37); MONO# 0.78 X1000 (0.11-0.59); MONO% 11.8 % (1.7-9.3); MPV 11.3 FL (7.4-10.4); NEUT% 52.5 % (42.2-75.2); PLT 186 X1000 (130-400); RBC 2.86 XMIL (4.2-5.4)
[2016-08-22] MEDS: COREG PO SCH (09:22)
[2016-08-22] MEDS: NS 1,000 ML IV SCH ×2 (09:22→22:28)
[2016-08-22] MEDS: RANEXA PO SCH (09:22)
[2016-08-22] MEDS: LIPITOR PO SCH (09:23)
[2016-08-22] MEDS: PEPCID PO SCH (09:23)
[2016-08-22] MEDS: KLOR-CON PO SCH (09:23)
--- NOTE | 2016-08-22 13:35 | PROGRESS NOTE ---
DATE: 08/22/2016 SUBJECTIVE: This morning, Ms. Graham refers to be doing a little better. She said that the urine frequency has improved. Per the nursing account, she has been very weak. We reviewed notes today. She was able to do only 40 feet with full weightbearing. The patient had a moderate surgical supply assistant and there was verbal guidance and a front wheeled walker was used as the device. PHYSICAL EXAMINATION: Vital Signs: Blood pressure is 130/52, pulse of 80, respirations are 20, temperature is 98.5 degrees. General Examination: Ms. Graham is a 76-year-old, female. She looks slightly dry. HEENT: Anicteric and acyanotic. Neck: Neck is supple. Chest: Good air entry bilaterally. No crepitations. Cardiovascular: Regular rate and rhythm. I think there is a 2/6 murmur radiating to the neck. Extremities: No pedal edema. HOT PATCHER: Patient is awake and alert and oriented, follows commands. Skin: The patient has an anterior sternotomy scar noted. DIAGNOSTIC DATA: An ultrasound of the kidneys which was done yesterday shows minimal free peritoneal fluid, the left upper quadrant sediment in the bladder consistent with patient's history of urinary tract infections. CURRENT MEDICATIONS: 1. Lipitor. 2. Carvedilol 12.5 mg daily. 3. Famotidine. 4. Zosyn 2.25 q.6. 5. Ranexa 1000 mg daily. LABORATORY DATA: WBC is 6.63, hemoglobin is 8.7, platelet count of 186,000. Chemistry reviewed. Creatinine is 1.4. Microbiology data shows Proteus mirabilis which is sensitive to the Zosyn. ASSESSMENT: 1. Altered mental status due to underlying toxic encephalopathy from urinary tract infection. 2. Proteus mirabilis urinary tract infection. 3. Acute on chronic kidney disease. The patient's creatinine is now down to 1.4 which I think is her baseline. 4. Clinical dehydration. We will continue with gentle hydration. 5. Anemia of chronic disease. 6. Diabetes mellitus type 2. 7. History of coronary artery disease, status post coronary artery bypass graft. PLAN: In general, I think Ms. Graham is doing relatively fine. She has been evaluated by Dr. Sorto and there is a plan to treat her for a total of 2 weeks of IV antibiotics. Will be pending her final arrangements with both social media content manager and the family for her discharge tomorrow. cc: Maury Underwood MD
--- NOTE | 2016-08-22 19:18 | PROGRESS NOTE ---
DATE: 08/22/2016 PRESENT ILLNESS: The patient has a multiply drug resistant Proteus urinary tract infection. MEDICATIONS: The patient is on a relatively low dose of Zosyn because of the patient's chronic kidney disease. PHYSICAL EXAMINATION: Vital Signs: Temperature is 97.6 degrees, pulse 74, respirations 19, blood pressure 115/42. General: This is a chronically ill-appearing, elderly female who is in no acute distress. Lungs: Clear to auscultation. Cardiovascular: Heart rate is regular with a systolic murmur. Abdomen and flank: Soft and nontender. Thorax: Patient has a pacemaker present on the left side. The site is not swollen or erythematous. LAB AND X-RAY: Patient's CBC today shows a white count of 6,630, hemoglobin 8.7, and platelet count 186,000. Creatinine is 1.4. The GFR is 36. ASSESSMENT AND PLAN: The patient has Proteus urinary tract infection. I plan to treat the patient with Zosyn for a total of 2 weeks. The patient's comorbidities include she is elderly, she is a diabetic, and she has chronic kidney disease. cc: Erick Sorto MD
[2016-08-23] MEDS: NS 1,000 ML IV SCH ×2 (01:23→15:23)
[2016-08-23] MEDS: ZOSYN 2.25 GM/NS 2.25 GM/50 ML IVPB IV SCH ×3 (01:32→17:10)
[2016-08-23] MEDS: HUMALOG SUBQ SCH ×4 (06:10→18:27)
[2016-08-23 07:22] LABS: CALCIUM 7.8 mg/dL (8.8-10.2); POTASSIUM 4.6 mmol/L (3.5-5.1)
[2016-08-23] MEDS: KLOR-CON PO SCH (09:09)
[2016-08-23] MEDS: RANEXA PO SCH (09:10)
[2016-08-23] MEDS: LIPITOR PO SCH (09:10)
[2016-08-23] MEDS: PEPCID PO SCH (09:10)
[2016-08-23] MEDS: COREG PO SCH (09:12)
--- NOTE | 2016-08-23 12:04 | DISCHARGE SUMMARY ---
ADMISSION DATE: 08/18/2016 DISCHARGE DATE: 08/23/2016 DISPOSITION: [facility]. CONSULTATION DURING THIS ADMISSION: ID was consulted. Patient was seen by Dr. Sorto. PICC line team has also been consulted for PICC line placement. INVASIVE PROCEDURES DONE DURING THIS ADMISSION: A PICC line to be inserted. IMAGING STUDIES OF SIGNIFICANCE: A chest x-ray was done on presentation, which shows increased interstitial markings that may represent fibrosis or minimal pulmonary edema. Ultrasound of the kidneys was done because of acute kidney injury, which showed minimal free peritoneal fluid and left upper quadrant cyst. Sediment in the urinary tract consistent with patient's history of recurrent urinary tract infections. ADMISSION DIAGNOSES: 1. Urinary tract infection. 2. Chronic kidney disease. 3. Hypertension. 4. Anemia of chronic disease. DIAGNOSIS AT THE TIME OF DISCHARGE: 1. Altered mental status due to underlying toxic encephalopathy from urinary tract infection. 2. Proteus mirabilis urinary tract infection. 3. Acute on chronic kidney disease, improving. 4. Clinical dehydration, improved. 5. Anemia of chronic disease. 6. Diabetes mellitus. 7. History of coronary artery disease, status post coronary artery bypass grafting DISCHARGE MEDICATIONS: 1. Atorvastatin 40 mg daily. 2. Carvedilol 12.5 mg daily. 3. Famotidine 20 mg daily. 4. Potassium chloride. 5. Ranalexin 1000 mg daily. 6. Amlodipine 10 mg daily. 7. Furosemide has been withheld because of volume depletion. This can be re-evaluated at a later date and resumed accordingly. 8. Hydralazine 50 mg daily. 9. Spironolactone 25 mg daily. 10. Tamsulosin 0.4 mg daily. 11. Vitamin E 1000 units daily. 12. Zosyn 2.25 g IV q.6 daily. This was started on 08/20/2016 and is to go for 2 weeks. End of therapy will be 09/03/2016. PRESENTING COMPLAINT: UTI symptoms. HISTORY OF PRESENTING COMPLAINT: Ms. Graham is a 76-year-old female who was in [facility] and was discharged to [place] re[facility]. The patient was therefore a while, was discharged, and on her way home started having some urinary tract infection and altered mentation. The patient was brought into the emergency department, where she was evaluated, and was found to be slightly altered and her urine was dirty. The patient was admitted for further medical care. HOSPITAL COURSE: The patient was treated adequately with IV antibiotics and adequate hydration. Her home medications were started. During the hospital stay, urine culture became positive for Proteus mirabilis, which was resistant to a lot of medications, was only sensitive to amikacin, gentamicin, tobramycin, and Zosyn. Infectious Disease was consulted. Patient was placed on Zosyn and recommendation was given to treat it for 2 weeks. Patient would therefore get a PICC line and discharge to LT to have antibiotic therapy for a total of 2 weeks as well as physical rehabilitation. At the time of discharge, patient's vitals were stable. Her blood pressure was 141/84, pulse of 74, respirations 12, and temperature 97.6 degrees. Physical exam was completely unremarkable. Laboratory data have been reviewed. Her creatinine is actually down to 1.2 from 1.7 on admission. We have encouraged her to drink adequately to hydrate herself. Patient will follow up with the staff at the LT and will also follow up with her primary care doctor and recommended to follow up with a floor scrubber. TIME SPENT FOR DISCHARGE: Thirty-seven minutes. cc: Maury Underwood MD
[2016-08-23] MEDS ORDERED: NS 250 ML ONE ×2 (13:52→15:22)
[2016-08-23 14:11] LABS: INR 1.04; PROTIME 10.9 Seconds (9.2-11.7)
--- NOTE | 2016-08-23 15:00 | PROGRESS NOTE ---
DATE: 08/23/2016 PRESENT ILLNESS: The patient has a multiply drug resistant Proteus urinary tract. MEDICATIONS: The patient is on a reduced dose of Zosyn because of the patient' s chronic kidney disease. PHYSICAL EXAMINATION: Vital Signs: Temperature is 97.6 degrees, pulse 92, respirations 18, blood pressure 131/57. General: This is a chronically ill-appearing, elderly female. She is in no acute distress. Lungs: Clear to auscultation. Cardiovascular: Regular heart rate. There was a systolic murmur. GI: Abdomen and flanks soft and nontender. Neurologic: Patient is alert. She can move her extremities. There is no tremor. Integument: No rash. LABORATORY AND X-RAY: The patient's creatinine is 1.2. The GFR is 43. There was no new CBC or radiographic study done today. ASSESSMENT AND PLAN: Patient has a UTI: Plan to treat with Zosyn for 2 weeks. COMORBIDITY: Elderly, diabetes, chronic kidney disease. Thank you for consult. cc: Erick Sorto MD MTDD
[2016-08-23 16:54] VITALS: BP 144/66
== END 2016-08-23 18:37 ==
LOC: ED 16:21 → SUATTDRO 22:53 → 3N 22:53
PROVIDERS: ATTEND Internal Medicine